=== PATIENT | female | born 1990 ===

== ENCOUNTER → 2023-05-05 | Outpatient (CLI) | payer BC, SELFPAY ==
[2023-05-05] VITALS (21 sets, daily range): BP systolic 109–131; BP diastolic 61–85; PULSE 53–91
== END | disposition home or self-care (01) ==
LOC: CARD DIAG 01:46
PROVIDERS: ATTEND Internal Medicine Interventional Cardiology
DX: R55 Syncope and collapse (principal)
CPT/HCPCS: 93660